=== PATIENT | male | born 1970 ===

== ENCOUNTER 2020-12-23 03:08 | Observation (INO) | payer MEDICARE, OTHER, SELFPAY ==
[2020-12-23] VITALS (12 sets, daily range): BP systolic 114–142; BP diastolic 55–81; PULSE 63–75; RESP 16–18; TEMP 36.1–37; O2SAT 94–99; BMI 42.3
--- NOTE | 2020-12-23 04:02 | DI.NM.S_ITS ---
PROCEDURE: NM NADIYA PERF SPECT R&S PHARM Rest and pharmacological stress myocardial perfusion SPECT with gated imaging and ejection fraction RADIOPHARMACEUTICAL: 12.2 mCi Tc-99m tetrafosmin IV at rest and 26.5 mCi Tc-99m tetrafosmin IV at peak effect of pharmacological stress. Upn-btx-npehjaiv was performed. INDICATIONS: Chest pain TECHNIQUE: Radiopharmaceutical was injected at peak stress test, and also at rest. SPECT images were obtained. SPECT myocardial perfusion images were displayed in short axis, horizontal long axis, and vertical long axis views. Gated images were reviewed using Apothesource software. COMPARISON: None. CARDIAC STRESS: A pharmacologic stress test was performed under the supervision of an attending staff, using an infusion of regadenoson. Hemodynamic data: There is normal blood pressure and heart rate response to pharmacologic stress. Symptoms: The patient denied anginal chest pain. EKG: No diagnostic changes of ischemia; no ectopy. FINDINGS: Raw data: There is good myocardial uptake of radiotracer. No significant motion artifacts. Swma-nx-oupoq ratio is 0.44 (normal is less than 0.38 for tetrafosmin tracer). Left ventricle function: Gated images demonstrate normal left ventricular wall thickening. No segmental wall motion abnormalities. No transient ischemic dilation; TID is 0.92 (normal less than 1.3). Left ventricle resting end diastolic volume is 118 mL. Left ventricle stress ejection fraction is 74%; normal range is above 45%. Myocardial perfusion: Large size, mild intensity fixed inferior wall defect that resolves with prone imaging. Normal wall motion. IMPRESSION: No evidence of pharmacologic induced ischemia. Dictated by: Kimberly Aragon D.O. on 12/24/2020 at 16:47 Approved by: Kimberly Aragon M.D. on 12/24/2020 at 16:54
--- NOTE | 2020-12-23 04:25 | PM.HP.1 ---
History of Present Illness History of Present Illness Date Patient Seen: 12/23/20 Time Patient Seen: 04:00 Chief complaint: Chest Pain Narrative: Patient is a 50-year-old male Дмитрий Rosario with a history of atrial fib, chronic back pain, depression, difficulty walking secondary to stroke due to a craniotomy for neurostimulator placement, type 2 diabetes, fibromyalgia, headaches, hyperlipidemia, hearing loss, hypertension, morbid obesity, restless leg syndrome, sleep apnea, and SVT who was transferred to [facility] from [facility] for chest pain. Patient reports additionally tachycardia with heart rates in the 150s in addition to new onset midline chest pressure and pain, that started while he was vacuuming approximately 4 days prior, pain comes and goes, can be provoked or worsen with movement and eating, nothing seems to improve it, his heart rate is irregular he senses palpations, irregular and skipping heartbeat and the rate is between 40-100 his normal rate being 60, which the patient monitors on his phone via his watch. He currently states that he has some mild chest pressure while resting in the bed following transfer, denies shortness of breath, diaphoresis, changes in vision. Does note a mild headache at this time. Denies new or changing weakness numbness tingling or changes to his difficulty in ambulation. Patient has chronic lower bilateral extremity edema no changes of anything he states that has improved in the last few weeks. Patient denies any history of a heart attack, patient did have a stroke subsequent to a craniotomy for the placement of an admit neurostimulator in the brain for his chronic pain in 2011 which has left him with permanent altered gait weakness, he uses a cane to get around. Patient reports he had an echo a few years ago with a nuclear stress test was unsure as to the results, he is on Eliquis, Lipitor, metoprolol, Cozaar, flecainide, and Lasix, his machine shop repair technician is Dr. Gonzalo Spivey machine shop repair technician at [facility]. Patient was requested for transfer to [place] from [place] due to the lack of availability of an echocardiogram over the weekend. Patient is currently stable and resting well. Patient's vitals upon admit temp 97?, BP 138/72, pulse 64, RR 16, O2 saturation 98% on room air. Patient's lab work at [place] I personally reviewed entire medical chart and note from ED CBC and CMP all within normal limits, patient's liver panel was noted to be elevated with a bili of 1.1, AST 62, ALT 102, patient's chest x-ray demonstrated no acute cardiopulmonary processes. Patient's EKG was a sinus rhythm with a rate of 65, prolonged DC, and possible left anterior fascicular block. Patient had 3 troponins all <0.017. Patient admitted for chest pain rule out-to complete echo and stress test. Patient History Medical History (Updated 12/23/20 @ 04:42 by REBA Thomas-) Allergies Atrial fibrillation, chronic Brain neurostimulator device in situ Chronic back pain Depression Difficulty in walking Essential hypertension Fibromyalgia Headache History of colon polyps Hyperlipidemia associated with type 2 diabetes mellitus Morbid obesity with BMI of 45.0-49.9, adult Non-insulin dependent type 2 diabetes mellitus Restless leg syndrome Sleep apnea SVT (supraventricular tachycardia) Surgical History (Updated 12/23/20 @ 04:42 by REBA Thomas-HOA) History of colonoscopy History of craniotomy History of esophagogastroduodenoscopy (EGD) Hx of LASIK Family & Social History Family History (Updated 12/23/20 @ 04:43 by REBA Thomas-HOA) Mother Parkinsons disease Stroke Brother Diabetes mellitus Stroke Social History: household members spouse Prior Living Arrangements Apartment/Condo Safety & Behavioral: Feels Safe in Current No Environment Been Physically Hurt or No Threatened By a Person Suicidal Ideation Description None Suicide Plan Description No Plan Tobacco & Substance use: Tobacco type cigarettes Smoking Status Former smoker quit in 2004, smoked 1 pack per day times 12 years alcohol intake current alcohol intake frequency holiday/special occasion Substance Use Type marijuana daily Meds Home Medications and Allergies Home Medications Medication Instructions Recorded Confirmed Type apixaban 5 mg tablet (Eliquis) 5 mg PO BID 12/23/20 12/23/20 History atorvastatin 20 mg tablet 20 mg PO DAILY 12/23/20 12/23/20 History blood sugar diagnostic (FreeStyle 12/23/20 12/23/20 History Lite Strips) donepezil 10 mg tablet 20 mg PO BEDTIME 12/23/20 12/23/20 History empagliflozin 25 mg tablet 25 mg PO DAILY 12/23/20 12/23/20 History (Jardiance) flecainide 50 mg tablet 50 mg PO BID 12/23/20 12/23/20 History fluticasone propionate 50 50 mcg INTRANASAL DAILY 12/23/20 12/23/20 History mcg/actuation nasal spray,suspension furosemide 20 mg tablet 20 mg PO DAILY 12/23/20 12/23/20 History lidocaine 5 % topical gel 5 ea TOPICAL PRN PRN 12/23/20 12/23/20 History losartan 25 mg tablet 25 mg DAILY 12/23/20 12/23/20 History magnesium 500 mg tablet 500 mg PO DAILY 12/23/20 12/23/20 History metformin 500 mg tablet 1,000 mg PO BIDWMEAL 12/23/20 12/23/20 History metoprolol tartrate 50 mg tablet 50 mg BID 12/23/20 12/23/20 History metronidazole 0.75 % topical cream 0.75 applic TOPICAL BID 12/23/20 12/23/20 History ropinirole 0.5 mg tablet 0.5 mg PO BEDTIME 12/23/20 12/23/20 History Allergies Allergy/AdvReac Type Severity Reaction Status Date / Time typhoid vaccine Allergy Verified 12/23/20 04:59 typhoid-paratyphoid vaccine Allergy Verified 12/23/20 04:59 adhesive AdvReac Verified 12/23/20 04:59 adhesive tape AdvReac Verified 12/23/20 04:59 indomethacin AdvReac Verified 12/23/20 04:59 topiramate AdvReac Verified 12/23/20 04:59 Review of Systems Review of Systems Narrative: All 12 point systems reviewed with the patient and are negative except otherwise documented. Exam Vital Signs (past 8 hours): - 12/23/20 03:20 Temperature 97.0 F L Pulse Rate 64 Respiratory Rate 16 Blood Pressure 138/72 Pulse Oximetry 98 Oxygen Flow Rate 0 Narrative Exam Narrative: General: Patient is a well-developed, morbidly obese male in no distress at this time. HEENT: Normocephalic, atraumatic, extraocular muscles intact, oral pharynx is clear and mucous membranes are moist. Neck is supple and symmetric, trachea is midline, no adenopathy, no thyroid enlargement, nontender, no masses palpated. Negative for JVD Chest: Normal AP diameter and contour without kyphoscoliosis, no nasal flaring, retractions, or tachypneic labored Lungs: Auscultation of all lung herr are clear without adventitious sounds, wheezes, rhonchi, or rales. Cardio: regular rate and rhythm without murmur, rubs, or gallops, no carotid bruit, no cardiac pulsations present. Abdomen: Soft, guarding and tenderness to lower left quad (pt reports negavtive w/u w/imaging & scopes)negative for organomegaly, or masses. Bowel sounds are present in all 4 quadrants without rebound, no CVA tenderness. Musculoskeletal: Muscle strength and tone are equal within normal limits, no deformity, crepitus, effusions, cyanosis, or clubbing present. Full range of motion intact radial and pedal pulses are normal. Bilateral nonpitting +1 edema Skin: Warm dry and intact without rashes, ulcerations or petechiae. Neuro: Alert and orientated x3, strength is +5/5 in all extremities, sensation to touch intact, no gross deficits noted of cranial nerves. Psych: Patient has a well-kept appearance, appropriate affect, mental status attitude thought context and judgment are appropriate for age. Assessment & Plan Assessment & Plan narrative: Patient is a 50-year-old male Дмитрий Rosario with a history of atrial fibrillation on Eliquis, chronic back pain, depression, difficulty walking secondary to stroke due to a craniotomy for neurostimulator placement, type 2 diabetes, fibromyalgia, headaches, hyperlipidemia, hearing loss, hypertension, morbid obesity, restless leg syndrome, sleep apnea, and SVT who was transferred to [facility] from [facility] for chest pain. [facility] does not have echoes available over the weekend. Transfer in admit excepted for chest pain rule out. 1. Chest pain, acute, in the setting of atrial fibrillation chronic, essential hypertension, and morbid obesity as evidence by BMI of 42.3, acute on chronic, present on admission -upon admit patient's vitals are stable, continues to have mild mid chest pressure discomfort without any other symptoms. -troponins X 3 @ Warrick <0.017. EKG was a sinus rhythm with a rate of 65, prolonged DC, and possible left anterior fascicular block. -I personally reviewed patient's medical records and chart note as well as EKG from [facility]. -Continue patients Eliquis, flecainide, Lasix, Cozaar, metoprolol, magnesium -Labs: Baseline in the a.m. CBC, BNP, liver panel, PT and PTT -echo ordered for tomorrow, stress test Thursday -patient placed on telemetry -Ordered one time GI Cocktail to see if patient has any change in his chest pressure. -upon discharge recommend follow with patient's machine shop repair technician Dr. Gonzalo Grossman [facility] -consideration will be given for dietary counseling 2. Non insulin-dependent type 2 diabetes, resulting in hyperlipidemia, chronic, present on admission -patient's glucose at cascade 99, A1c ordered -patient admitted on diabetic protocol, glucose checks a.c. and HS, monitor for hypoglycemia -patient takes Jardiance continue and holding metformin, patient placed on low-dose sliding scale 3. Fibromyalgia with restless leg syndrome, chronic, present on admission -continue patient's Aricept, Requip Code status:Full Surrogate decision maker: Spouse Che Rosario RACQUELID PCR:Negative COVID vaccination: Pfizer July 2020 DVT/VTE prophylaxis:On Eliqu , SCD's only Disposition: Patient admitted for observation expected length stay no longer than 2 midnights. I have utilized all available immediate resources to obtain, update, or review the patient's current medications. I confirmed that the patient's advanced care plan is present, Code status is documented and/or surrogate decision maker is listed in the patient's medical record. Time Spent With Patient Critical Care time: I spent a total of [] minutes of critical care time on this patient's care today; this time is exclusive of procedural time. Scores GCS Nguyen coma scale eye opening: Spontaneous [place] coma scale verbal response: Orientated [place] coma scale motor response: Obey commands Nguyen coma scale total score: 15
[2020-12-23] MEDS: ACETAMINOPHEN 325 MG TABLET 650 MG PO ×2 (05:16→21:22)
[2020-12-23 05:21] LABS: Add Manual Diff / Slide Review NO; Basophils Absolute Auto 0 /uL (0-100); Basophils Percent Auto 0.5 % (0-2); Eosinophils Absolute Auto 100 /uL (0-450); Eosinophils Percent Auto 1.4 % (2-4); Hematocrit 44.3 % (41-53); Hemoglobin 15.3 g/dL (13.5-17.5); Lymphocytes Absolute Auto 2300 /uL (1100-4500); Lymphocytes Percent Auto 29.5 % (25-40); Mean Corpuscular HGB Conc 34.6 % (30-36); Mean Corpuscular Hemoglobin 30.9 PG (26-34); Mean Corpuscular Volume 89.3 fL (80-100); Monocytes Absolute Auto 700 /uL (0-900); Monocytes Percent Auto 9.6 % (3-14); Neutrophils Absolute Auto 4600 /uL (1500-7000); Platelet Count 172 X10^3/uL (150-400); Red Blood Cell Count 4.96 X10^6/uL (4.5-5.9); Red Cell Distribution Width 13.6 % (11.6-14.8); White Blood Cell Count 7.8 X10^3/uL (4.5-11.0)
[2020-12-23 05:24] LABS: INR 1.2 (0.9-1.3); Prothrombin Time 13.6 SECONDS (10.1-12.7)
[2020-12-23 05:26] LABS: PTT Partial Thromboplastin Tim 33 SECONDS (26.4-36.2)
[2020-12-23 05:31] LABS: BUN Creatinine Ratio 17.5 (6-22); Blood Urea Nitrogen 21 mg/dL (9-20); Calcium 9.4 mg/dL (8.4-10.2); Carbon Dioxide 32 mmol/L (22-32); Chloride 102 mmol/L (98-107); Cholesterol 117 mg/dL (140-199); Estimated Glomerular Filt Rate > 60.0 mL/min (>60); Glucose 86 mg/dL (70-100); HDL Cholesterol 40 mg/dL (40-60); HEMOLYSIS < 15 (0-50); LDL Cholesterol Calculated 42 mg/dL (<100); Potassium 3.6 mmol/L (3.4-5.1); Sodium 138 mmol/L (137-145); Triglycerides 176 mg/dL (35-150)
[2020-12-23] MEDS: MAG HYDROX/ALUMINUM/SIMETH SUS 20 ML, LIDOCAINE VISCOUS 2% 15 ML PO (05:36)
[2020-12-23 05:40] LABS: NT-proBNP (BNP-Adult 18+) 15 pg/mL (<125); Troponin I < 0.012 ng/mL (0.01-0.034)
[2020-12-23 05:52] LABS: Alanine Aminotransferase 91 IU/L (<50); Albumin 4.2 g/dL (3.5-5.0); Albumin Globulin Ratio 1.6 (1.0-2.8); Alkaline Phosphatase 98 U/L (38-126); Aspartate Aminotransferase 67 IU/L (17-59); Bilirubin Total 1.1 mg/dL (0.2-1.3); Globulin 2.6 g/dL (1.7-4.1); HEMOLYSIS < 15 (0-50); Total Protein 6.8 g/dL (6.3-8.2)
[2020-12-23] MEDS: LOSARTAN 25 MG TABLET PO (08:14)
[2020-12-23] MEDS: METFORMIN HCL 500 MG TABLET 1000 MG PO ×2 (08:14→16:32)
[2020-12-23] MEDS: APIXABAN 5 MG TABLET PO ×2 (08:14→21:23)
[2020-12-23] MEDS: METOPROLOL IR 50 MG TABLET PO ×2 (08:14→21:23)
[2020-12-23] MEDS: ATORVASTATIN 20 MG TABLET PO (08:14)
[2020-12-23] MEDS: FLECAINIDE 50 MG 50 EACH PO ×2 (09:29→21:24)
[2020-12-23] MEDS: Empagliflozin [Jardiance] 25 mg tablet 25 EACH PO (09:29)
[2020-12-23] MEDS: SODIUM CHLORIDE 0.9% FLUSH 10 ML IV ×2 (09:30→22:49)
[2020-12-23] MEDS: FUROSEMIDE 20 MG TABLET PO (09:30)
--- NOTE | 2020-12-23 09:32 | CM.DANOTE ---
DCP: Case received, EMR reviewed and met with patient. Introduced self and role. Was able to obtain information regarding patient's baseline activity status at home prior to hospitalization. DCP assessment completed with information currently available. Patient is a 50 year old male who admitted early this morning to the care of the hospitalist team. PCP: Dr. Kam at [facility] Payer: confirmed: Medicare/ for Life. Patient came to the hospital via ambulance from [facility], for they were full, did not have echo available. Patient had originally gone to [facility] with complaints of chest pain, then to [place], and could not admit him for these reasons and sent him here. Patient is here for complaints of chest pain, and will be having an echo today, and stress test tomorrow. Met with patient in his room. He resides in [place] with his spouse, Bigg. He is independent at his baseline. Confirmed that he does have a primary care provider at [facility]. P: DCP to continue to follow. Patient should be able to go home when he is deemed medically stable. Klaudia Joyner RN/Compressor Battery Pellets Discharge Planning/Care Management CM Discharge Assessment Start: 12/23/20 09:26 Freq: Status: Active Protocol: Document 12/23/20 09:27 (Rec: 12/23/20 09:32 [id number]) Discharge Planning Assessment Assigned Classics Teacher Klaudia Joyner RN Case Manager Advance Directives? No History Provided By Patient,Medical Record Prior Living Arrangements Apartment/Condo Household Members spouse Type of transporation used prior to Drives own vehicle admit Independent with ADL's Yes Is patient alert and oriented? Yes Caregiver for Another No Barriers to Discharge No Discharge Plan Home Transportation Arrangement Spouse Referrals Initiated None needed Whiteboard Updated in Patient Room with Yes name and ext. # of Classics Teacher Review Status In Process Next Review Type Continued Stay Review
--- NOTE | 2020-12-23 16:38 | DI.CT.S_ITS ---
PROCEDURE: CT ABDOMEN PELVIS W CON INDICATIONS: abdominal pain TECHNIQUE: After the administration of oral and IV contrast, axial sections were acquired from the lung bases to the pubic symphysis. Coronal and sagittal reformats were performed. For radiation dose reduction, the following was used: automated exposure control, adjustment of mA and/or kV according to patient size. COMPARISON: [facility], CT, CT ABDOMEN PELVIS WITH CONTRAST, 07/27/2019, 12:43. [facility], CT, CT ABDOMEN PELVIS WITHOUT CONTRAST, 10/03/2015, 16:17. [facility], CT, CT KUB, 08/20/2020, 14:32. [facility], CR, XR CHEST 1 VIEW, 12/22/2020, 18:01. FINDINGS: Image quality: Excellent. Lung bases: Unremarkable. Heart: No significant findings. ABDOMEN: Liver: Diffuse fatty liver infiltration is noted. Gallbladder: Unremarkable. Biliary ducts: Unremarkable. Pancreas: Unremarkable. Spleen: Unremarkable. Adrenal Glands: Unremarkable. Kidneys and Ureters: Several simple appearing, water density, nonenhancing cysts can be seen. Stomach and Bowel: Stomach, small bowel loops, and colon are unremarkable. A normal appendix is incidentally noted. Peritoneum: No abnormal intraperitoneal fluid. No free air. Ventral Wall: No hernia. Abdominal Nodes: No retroperitoneal or mesenteric adenopathy by size criteria. Vessels: Aorta and inferior vena cava are normal in size. PELVIS: Pelvic Organs: Unremarkable. Bladder: Unremarkable. Pelvic Nodes: No enlarged lymph nodes. Miscellaneous: Bilateral fat containing inguinal hernias are seen, right larger than left. Bones: Degenerative changes are seen throughout, including involving the lower lumbar spine. IMPRESSION: A cause of abdominal pain is not observed. Incidental note is made of: Fatty liver infiltration Simple appearing bilateral renal cysts. Normal appendix Bilateral fat containing inguinal hernias Dictated by: Roque Merrill M.D. on 12/23/2020 at 16:29 Approved by: Roque Merrill M.D. on 12/23/2020 at 16:33
[2020-12-23] MEDS: DONEPEZIL 5 MG TABLET 20 MG PO (21:23)
[2020-12-23] MEDS: ROPINIROLE 0.25 MG TABLET 0.5 MG PO (21:23)
[2020-12-23 22:18] LABS: Troponin I < 0.012 ng/mL (0.01-0.034)
[2020-12-24] VITALS (9 sets, daily range): BP systolic 127–140; BP diastolic 65–86; PULSE 59–77; RESP 16; TEMP 36.2–36.5; O2SAT 92–98
--- NOTE | 2020-12-24 01:34 | PC.NURSE ---
Patient is alert and oriented with flat affect. Breath sounds CTA with RA sat of 99%. HRR with telemetry reading of SR. Denied nausea. BT present and abdomen is soft. Denied dysuria, frequency or urgency with urination. Is able to turn himself in bed. 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 Complains of 6/10 bilateral flank pain radiating into groin on left side; declines offer to contact MD for pain medication (had Tylenol earlier with no change in severity), warm blanket or ice pack. Bilateral calf SCD's applied at shift change. Fall risk score is high and bed alarm is activated. Is aware he will be NPO in the morning for stress test.
[2020-12-24] MEDS: SODIUM CHLORIDE 0.9% FLUSH 10 ML IV (11:47)
--- NOTE | 2020-12-24 11:57 | PC.NURSE ---
Addendum entered by Felicia Colvin R.N. 12/24/20 14:10: pt left for stress test around 12:15 and returned to room at 1410. Lunch is in room and so is family member. Lab called looking for status update on stool sample and I let them know that pt has yet to have a bowl movement. Original Note: AM shift note. pt AO and receptive to care. PIV bilat AC flushing. pt denying chest pain currently and does report mild, tolerable pain to his left groin area (which has been occurring for the last couple months; ABD CT neg). Tele: NSR. ACHS: 84, 80. Stress test pending this afternoon, pt has already been administered contrast and images obtained this AM. NPO with sips of water okay (per nuc med). Pending stool sample due to pt reporting diarrhea for the last 2 weeks, no BM yet. SBA with cane (baseline).
[2020-12-24] MEDS: ACETAMINOPHEN 325 MG TABLET 650 MG PO (14:21)
--- NOTE | 2020-12-24 19:04 | PC.NURSE ---
Evening Shift/Discharge Note- Patient discharged home per hospitalist. Discharge instructions and education reviewed with patient and signed. IV lines x2 removed and bandage applied. Tele Monitor removed. Patient dressed self and packed up all personal belongings. Patient left via wheelchair with all personal belongings and spouse to private car at 1820.
--- NOTE | 2020-12-26 17:00 | PM.DS.1 ---
History of Present Illness History of Present Illness Date Patient Seen: 12/24/20 Chief complaint: Chest Pain Narrative: Patient is a 50-year-old male Дмитрий Rosario with a history of atrial fib, chronic back pain, depression, difficulty walking secondary to stroke due to a craniotomy for neurostimulator placement, type 2 diabetes, fibromyalgia, headaches, hyperlipidemia, hearing loss, hypertension, morbid obesity, restless leg syndrome, sleep apnea, and SVT who was transferred to [facility] from [facility] for chest pain. Patient reports additionally tachycardia with heart rates in the 150s in addition to new onset midline chest pressure and pain, that started while he was vacuuming approximately 4 days prior, pain comes and goes, can be provoked or worsen with movement and eating, nothing seems to improve it, his heart rate is irregular he senses palpations, irregular and skipping heartbeat and the rate is between 40-100 his normal rate being 60, which the patient monitors on his phone via his watch. He currently states that he has some mild chest pressure while resting in the bed following transfer, denies shortness of breath, diaphoresis, changes in vision. Does note a mild headache at this time. Denies new or changing weakness numbness tingling or changes to his difficulty in ambulation. Patient has chronic lower bilateral extremity edema no changes of anything he states that has improved in the last few weeks. Patient denies any history of a heart attack, patient did have a stroke subsequent to a craniotomy for the placement of an admit neurostimulator in the brain for his chronic pain in 2011 which has left him with permanent altered gait weakness, he uses a cane to get around. Patient reports he had an echo a few years ago with a nuclear stress test was unsure as to the results, he is on Eliquis, Lipitor, metoprolol, Cozaar, flecainide, and Lasix, his terminal superintendent is Dr. Gonzalo Spivey terminal superintendent at [facility]. Patient was requested for transfer to [facility] from [facility] due to the lack of availability of an echocardiogram over the weekend. Patient is currently stable and resting well. Patient's vitals upon admit temp 97?, BP 138/72, pulse 64, RR 16, O2 saturation 98% on room air. Patient's lab work at [facility] I personally reviewed entire medical chart and note from ED CBC and CMP all within normal limits, patient's liver panel was noted to be elevated with a bili of 1.1, AST 62, ALT 102, patient's chest x-ray demonstrated no acute cardiopulmonary processes. Patient's EKG was a sinus rhythm with a rate of 65, prolonged ME, and possible left anterior fascicular block. Patient had 3 troponins all <0.017. Patient admitted for chest pain rule out-to complete echo and stress test. Discharge Providers Provider Date of admission: 12/23/20 03:08 Discharge Date: 12/24/20 Discharge provider: Ana Suero MD Summary Hospital Course Discharge Diagnosis: 1. Chest pain, stress test negative 2. Chronic atrial fibrillation 3. Back pain 4. Depression 5. History of stroke 6. Hypertension 7. Morbid obesity 8. Type 2 diabetes Hospital Course: Patient was admitted to the hospital for evaluation of chest pain in the setting of atrial fibrillation and hypertension. Patient described having palpitations which she could measure on his iPhone I watch. He had his shortness of breath and chest pain. The patient underwent stress testing including a Lexiscan. There was no evidence of reversible ischemia. Patient had no further chest pain. It was felt that his symptoms were likely related to palpitations from his atrial fibrillation. Patient was asked to follow-up with his terminal superintendent for potential loop recorder and further evaluation of his atrial fibrillation. Cardiac enzymes were negative. Patient was deemed appropriate for discharge and discharged home. Status at Discharge Cognitive/behavioral status at discharge: oriented Functional status at discharge: uses cane/walker Overall status at discharge: patient is back to baseline Exam Vital Signs (past 8 hours): Oxygen Delivery Method Room Air Oxygen Flow Rate 0 Narrative Exam Narrative: Pleasant gentleman in no acute distress Resp Other: Lungs clear to auscultation Cardio Other: Regular rate and rhythm normal S1-S2 GI Other: Abdomen soft and nontender Objective Labs Result Diagrams: 12/23/20 04:40 12/23/20 04:40 [facility] Medical History (Updated 12/23/20 @ 04:42 by URMILA Thomas) Allergies Atrial fibrillation, chronic Brain neurostimulator device in situ Chronic back pain Depression Difficulty in walking Essential hypertension Fibromyalgia Headache History of colon polyps Hyperlipidemia associated with type 2 diabetes mellitus Morbid obesity with BMI of 45.0-49.9, adult Non-insulin dependent type 2 diabetes mellitus Restless leg syndrome Sleep apnea SVT (supraventricular tachycardia) Surgical History (Updated 12/23/20 @ 04:42 by THANH Thomas) History of colonoscopy History of craniotomy History of esophagogastroduodenoscopy (EGD) Hx of LASIK Family History (Updated 12/23/20 @ 04:43 [facility] Mother Parkinsons disease Stroke Brother Diabetes mellitus Stroke Social History household members: spouse Smoking Status: Former smoker alcohol intake: current Discharge Plan Discharge Plan Patient Disposition: Home Discharge orders & Medications Prescriptions: Continued metformin 500 mg tablet 1,000 mg PO BIDWMEAL RF: 0 magnesium 500 mg Tablet 500 mg PO DAILY RF: 0 atorvastatin 20 mg tablet 20 mg PO DAILY RF: 0 donepezil 10 mg tablet 20 mg PO BEDTIME RF: 0 ropinirole 0.5 mg tablet 0.5 mg PO BEDTIME RF: 0 flecainide 50 mg tablet 50 mg PO BID RF: 0 metronidazole 0.75 % Cream 0.75 applic TOPICAL BID RF: 0 losartan 25 mg tablet 25 mg DAILY RF: 0 metoprolol tartrate 50 mg tablet 50 mg BID RF: 0 furosemide 20 mg tablet 20 mg PO DAILY RF: 0 fluticasone propionate 50 mcg/actuation [place],Suspension 50 mcg INTRANASAL DAILY RF: 0 lidocaine 5 % Gel 5 ea topical PRN PRN (Reason: Pain (Scale Score 1-3)) RF: 0 Eliquis 5 mg tablet 5 mg PO BID RF: 0 Jardiance 25 mg tablet 25 mg PO DAILY RF: 0 No Action (DME) FreeStyle Lite Strips Strip MISCELLANEOUS RF: 0 Discharge Health Status Multidrug resistant organism: No MDRO Diet/Activity/Treatments Diet: Low-sodium and Low-cholesterol Visit Report/Discharge Packet Instructions: DI for Chest Pain Discharge Data Attending Provider: Corry Cardozo
== END 2020-12-24 18:20 | disposition home or self-care (01) ==
PROVIDERS: Admitting Provider Nurse Practitioner Family; Visit Provider Nurse Practitioner Family
DX: R07.9 Chest pain, unspecified (principal); I48.20 Chronic atrial fibrillation, unspecified; E11.9 Type 2 diabetes mellitus without complications; Z86.73 Personal history of transient ischemic attack (TIA), and cerebral infarction without residual deficits; I10 Essential (primary) hypertension; E66.9 Obesity, unspecified; M79.7 Fibromyalgia; G25.81 Restless legs syndrome; E78.5 Hyperlipidemia, unspecified; F32.9 Major depressive disorder, single episode, unspecified; G89.29 Other chronic pain; M54.9 Dorsalgia, unspecified; G47.33 Obstructive sleep apnea (adult) (pediatric); Z79.01 Long term (current) use of anticoagulants; Z79.84 Long term (current) use of oral hypoglycemic drugs; Z68.41 Body mass index [BMI] 40.0-44.9, adult
CPT/HCPCS: 36415; 74177; 78452; 80048; 80061; 80076; 82962; 83036; 83735; 83880; 84484; 85025; 85610; 85730; 93017; 94760; 96374; G0378; A9502; G0379; J1815; J2785; Q9967